=== PATIENT | female | born 1950 | race Caucasian/White ===

== ENCOUNTER 2021-04-16 09:26 | Emergency (ER) | payer MEDICAID, SELFPAY ==
[~2021-04-16] VITALS: Ht 162.6 cm; Wt 83.9 kg
[2021-04-16] MEDS ORDERED: NITROGLYCERIN 1 INCH (GM) OINT. TP ONE (09:34)
[2021-04-16] MEDS ORDERED: MORPHINE 4 MG INJ. 4 MG/ML VIAL IVP ONE (09:34)
[2021-04-16 09:36] VITALS: BP_SYST 163
[2021-04-16] MEDS ORDERED: ROSU10TA2 PO (09:46)
[2021-04-16] MEDS ORDERED: CARV25TA55 PO (09:46)
[2021-04-16] MEDS ORDERED: ASPI-1393 PO (09:46)
[2021-04-16] MEDS ORDERED: AMLO5TAB4 PO (09:46)
[2021-04-16] MEDS ORDERED: FERR325T30 PO (09:46)
[2021-04-16] MEDS ORDERED: CALC667T6 PO (09:46)
[2021-04-16] MEDS ORDERED: HYDR-4037 PO (09:46)
[2021-04-16 10:04] LABS: BASOPHILS # (AUTO) 0.1 K/uL (0.0-0.2); BASOPHILS % (AUTO) 1.2 % (0.0-2.0); EOSINOPHILS # (AUTO) 0.2 K/uL (0.0-0.4); MONOCYTES # (AUTO) 0.4 K/uL (0.0-1.0); NEUTROPHILS # (AUTO) 2.8 K/uL (1.8-7.7); RED BLOOD CELL COUNT(AUTO) 4.78 MIL/uL (4.2-6.2); RED CELL DISTRIBUTION WIDTH 17.4 % (9.0-15.0); WHITE BLOOD COUNT (AUTO) 4.4 K/uL (4.8-10.8)
[2021-04-16 10:12] LABS: EOSINOPHILS % (AUTO) 4.4 % (0.0-4.0); HEMATOCRIT 38.8 % (36-48); HEMOGLOBIN 12.5 g/dL (12.0-16.0); LYMPHOCYTES % (AUTO) 22.5 % (20.5-51.5); MEAN CORPUSCULAR HEMOGLOBIN 26 pg (27-31); MEAN CORPUSCULAR HGB CONC 32 % (32-36); MEAN CORPUSCULAR VOLUME 81 fL (79.0-98.0); MONOCYTES % (AUTO) 8.5 % (1.7-9.3); NEUTROPHILS % (AUTO) 63.4 % (40.0-70.0); PLATELET COUNT (AUTO) 182 K/uL (130-430)
[2021-04-16 10:20] LABS: ANION GAP 9 (5-15); CALCIUM 8.8 mg/dL (8.4-11.0); CHLORIDE 98 mmol/L (98-107); CREATININE 6.86 mg/dL (0.55-1.30); GLUCOSE 127 mg/dL (70-99); SODIUM SERUM 136 mmol/L (136-145); UREA NITROGEN, BLOOD 45 mg/dL (8-21)
[2021-04-16 10:22] LABS: POTASSIUM 4.1 mmol/L (3.5-5.1)
[2021-04-16 10:26] LABS: ALANINE AMINOTRANSFERASE 14 U/L (12-78); ALBUMIN 3.1 g/dL (3.4-4.8); ASPARTATE AMINOTRANSFERASE 18 U/L (10-37); TOTAL BILIRUBIN 0.4 mg/dL (0.0-1.0)
[2021-04-16] MEDS ORDERED: KETOROLAC TROMETHAMINE 30 MG VIAL IVP ONE (10:45)
[2021-04-16] MEDS ORDERED: NAPR-688 PO (12:38)
[2021-04-16 13:06] VITALS: BP_SYST 125
== END 2021-04-16 13:07 | disposition home or self-care (01) ==
LOC: SED 09:26
DX: M94.0 Chondrocostal junction syndrome [Tietze] (principal); R07.89 Other chest pain; I10 Essential (primary) hypertension; Z79.82 Long term (current) use of aspirin; Z79.899 Other long term (current) drug therapy; Z20.822 Contact with and (suspected) exposure to COVID-19
CPT/HCPCS: 36415; 71045; 80053; 83880; 84484; 85025; 85379; 87081; 87426; 93005; 96374; 96375; 99285; J1885; J2270